=== PATIENT | male | born 1980 | race Caucasian/White ===

== ENCOUNTER 2022-10-26 11:04 | Emergency (ER) | payer SELFPAY ==
[2022-10-26 11:05] VITALS: BP 116/81; PULSE 79; RESP 16; TEMP 37.1; O2SAT 100
[2022-10-26 11:10] VITALS: BP 116/81; PULSE 79; RESP 16; TEMP 37.1; O2SAT 100
[2022-10-26 11:53] LABS: Basophils Absolute Auto 0.05 K/mm3 (0.00-0.10); Basophils Percent Auto 0.7 % (0.0-1.0); Eosinophils Absolute Auto 0.28 K/mm3 (0.02-0.50); Eosinophils Percent Auto 3.7 % (1.0-6.0); Hematocrit 45.6 % (40.0-54.0); Hemoglobin 15.2 g/dL (14.0-18.0); Immature Granulocyte Absolute 0.03 K/mm3 (0.00-0.00); Immature Granulocyte Percent A 0.4 % (0.0-0.0); Lymphocytes Absolute Auto 2.44 K/mm3 (1.10-4.50); Lymphocytes Percent Auto 32.6 % (18.0-42.0); Mean Corpuscular HGB Conc 33.3 g/dL (32.0-36.0); Mean Corpuscular Hemoglobin 30.8 pg (27.0-31.0); Mean Corpuscular Volume 92.5 fL (78.0-102.0); Mean Platelet Volume 9.4 fl (8.7-11.0); Monocytes Absolute Auto 0.61 K/mm3 (0.10-0.90); Monocytes Percent Auto 8.1 % (2.0-11.0); Neutrophils Absolute Auto 4.1 K/mm3 (1.7-7.2); Neutrophils Percent Auto 54.5 % (50.0-70.0); Platelet Count Result 240 K/mm3 (150-420); Red Blood Count 4.93 M/mm3 (4.70-6.10); Red Cell Distribution Width 13.1 % (11.6-14.4); Strep Group A RT-PCR NOT DETECTED (Negative); White Blood Count 7.5 K/mm3 (4.8-10.8)
[2022-10-26 12:02] LABS: Influenza A QL RT-PCR Negative (Negative); Influenza B QL RT-PCR Negative (Negative); SARS-CoV-2 RNA PCR Negative (Negative)
[2022-10-26 12:03] LABS: RSV RNA, RT-PCR Negative (Negative)
[2022-10-26 12:18] LABS: Alanine Aminotransferase 58 U/L (16-63); Albumin Level 3.1 g/dL (3.4-5.0); Alkaline Phosphatase 309 U/L (46-116); Anion Gap 4 mmol/L (8-16); Aspartate Amino Transferase 43 U/L (15-37); Bilirubin,Total 0.5 mg/dL (0.00-1.00); Blood Urea Nitrogen 7 mg/dL (7-18); Calcium 8.4 mg/dL (8.5-10.1); Carbon Dioxide 29 mmol/L (21-32); Chloride 104 mmol/L (98-108); Estimated CRCL calculation 89 ml/min; Estimated Glomerular Filt Rate > 60; Glucose 96 mg/dL (70-99); Osmolality Calculated 282 mOsm/kg (285-295); Potassium 4.5 mmol/L (3.5-5.1); Sodium 137 mmol/L (136-145); Total Protein 8.1 g/dL (6.4-8.2)
--- NOTE | 2022-10-26 12:44 | ED.GENADULT ---
HPI - General Adult General Chief complaint: Fever Stated complaint: fever,muscle spasm,fatgue Time Seen by Provider: 10/26/22 11:31 Source: patient Mode of arrival: ambulatory Limitations: no limitations History of Present Illness HPI narrative: This is a 42-year-old gentleman with some 3 day history of body aches low-grade fevers had diarrhea approximately 3 days ago currently no diarrhea no nausea vomiting no abdominal pain no chest pain no shortness of breath there is no cough or congestion no dysuria. Patient states that he has been having numbness and tingling in his middle fingers bilaterally with no known injury. Severity: mild Related Data Home Medications Medication Instructions Recorded Confirmed No Home Medications 10/26/22 10/26/22 Allergies Allergy/AdvReac Type Severity Reaction Status Date / Time No Known Allergies Allergy Mild Verified 10/26/22 11:38 Review of Systems Review of Systems: All systems reviewed & are unremarkable except as noted in HPI and below PMFSH Past Medical History Medical History Patient denies medical problems Social History Social History Smoking status: Current every day smoker Alcohol intake: never Exam Const: General: healthy appearing Nutritional Appearance: well nourished Orientation/consciousness: patient oriented x3 Limitations: no limitations HENMT: Head: normal to inspection Ears: external ears normal Face/Nose/Sinus: Normal external nose present Mouth: Yes Normal oral and palatal mucosa present Throat: posterior oropharynx normal Eyes: Conjunctivae: conjunctivae normal Pupils: Equal, round and reactive pupils present EOM: EOMs intact bilaterally Direct Ophthalmoscopy: no photophobia Neck: Neck: normal visual inspection Chest: Chest palpation & inspection: normal inspection of the chest Resp: Effort & Inspection: normal respiratory effort Auscultation: clear to auscultation bilaterally Cardio: Rate: regular rate Rhythm: regular rhythm GI: GI Palp: Yes Soft to palpation Auscultation: normal bowel sounds : General: Yes bladder normal to palpation Skin: General skin exam: normal color Rashes: no rashes Neuro: General: patient oriented x3 and moves all extremities Cranial nerves: Yes Nystagmus not present Speech: normal speech Gait exam (Neuro): Normal gait present Extrem: General: normal to inspection Psych: Mental Status: mental status grossly normal Affect: normal affect Course Course Emergency Course: labs and COVID RSV and strep all negative. Vital Signs Vital signs: Vital Signs Temperature 37.1 C 10/26/22 11:05 Pulse Rate 79 10/26/22 11:05 Respiratory Rate 16 10/26/22 11:05 Blood Pressure 116/81 10/26/22 11:05 Pulse Oximetry 100 10/26/22 11:05 Oxygen Delivery Room Air 10/26/22 11:05 Temperature 37.1 C 10/26/22 11:10 Pulse Rate 79 10/26/22 11:10 Respiratory Rate 16 10/26/22 11:10 Blood Pressure 116/81 10/26/22 11:10 Pulse Oximetry 100 10/26/22 11:10 Oxygen Delivery Room Air 10/26/22 11:10 Medical Decision Making Vital Signs Vital Signs: Vital Signs Temperature 37.1 C 10/26/22 11:05 Pulse Rate 79 10/26/22 11:05 Respiratory Rate 16 10/26/22 11:05 Blood Pressure 116/81 10/26/22 11:05 Pulse Oximetry 100 10/26/22 11:05 Oxygen Delivery Room Air 10/26/22 11:05 Temperature 37.1 C 10/26/22 11:10 Pulse Rate 79 10/26/22 11:10 Respiratory Rate 16 10/26/22 11:10 Blood Pressure 116/81 10/26/22 11:10 Pulse Oximetry 100 10/26/22 11:10 Oxygen Delivery Room Air 10/26/22 11:10 Lab Data 10/26/22 11:40 10/26/22 11:40 Labs: Lab Results 10/26/22 10/26/22 10/26/22 Range/Units 11:40 11:40 11:40 WBC 7.5 (4.8-10.8) K/mm3 RBC 4.93 (4.70-6.10) M/mm3 Hgb 15.2 (14.0-18.0) g/
[2022-10-26 13:00] VITALS: BP 121/64; PULSE 65; RESP 16; TEMP 36.2; O2SAT 99
== END 2022-10-26 13:02 | disposition home or self-care (01) ==
PROVIDERS: Emergency Provider Emergency Medicine
DX: B34.9 Viral infection, unspecified (principal); F17.200 Nicotine dependence, unspecified, uncomplicated; Z20.822 Contact with and (suspected) exposure to COVID-19
CPT/HCPCS: 36415; 80053; 85025; 87637; 87651; 99283